=== PATIENT | male | born 1985 | race Caucasian/White ===

== ENCOUNTER 2017-05-04 10:06 | Emergency (ER) | payer OTHER, SELFPAY ==
[2017-05-04 10:07] VITALS: BP 159/106; PULSE 89; RESP 18; TEMP 36.6; O2SAT 100; BMI 27.4
--- NOTE | 2017-05-04 10:19 | CT_ITS ---
STUDY: CT ABDOMEN AND PELVIS WITHOUT CONTRAST REASON FOR EXAM: Male, 31 years old. LEFT FLANK PAIN. RADIATION DOSAGE (If Supplied By Facility): CTDIvol = ( 6.62 ) mGy, DLP = ( 309.48 ) mGycm TECHNIQUE: Transaxial images were obtained from the dome of the diaphragm to the symphysis pubis without oral contrast, and without intravenous contrast. Sagittal and coronal images were reconstructed. Individualized dose optimization techniques were used for this CT. COMPARISON: None. FINDINGS: The visualized lung bases are unremarkable. The visualized portions of the heart are within normal limits. Normal liver. Normal gallbladder and extrahepatic biliary system. Normal spleen. Normal pancreas. Normal bilateral adrenal glands. Normal right kidney. 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 Normal visualized stomach. Normal small intestine. Normal colon. The appendix is visualized and appears normal. Normal abdominal aorta. Normal inferior vena cava. Normal retroperitoneum. Normal urinary bladder. Normal abdominal wall. There are diffuse degenerative changes of the visualized lumbar spine. CT/Abdomen/Pelvis without Cont IMPRESSION: No hydronephrosis or urolithiasis. Duplicated left kidney system. Electronically Signed: Aleida Gardiner MD at 10:57 EDT Tel , Service support ,
[2017-05-04 10:40] LABS: Absolute Lymphocyte Count 2.06 X10^3/ul (0.83-4.51); Basophil# 0.01 X10^3/uL; Basophil% 0.1 % (0-1); Eosinophil# 0.07 X10^3/uL; Hematocrit 43.9 % (40-54); Hemoglobin 14.9 g/dl (13.0-16.5); Lymphocyte # 2.06 X10^3/ul (4.0); Lymphocyte % 30.8 % (19-41); Mean Corp Hgb Conc 33.9 g/gl (32-36); Mean Corpuscular Hgb 29.5 pg (27.0-32.0); Mean Corpuscular Volume 86.9 fL (80-94); Mean Platelet Vol. 9.1 fl (6.2-12.0); Monocyte% 7.5 % (0-10); Neutrophil # 4.03 X10^3/uL (2.7-7.7); Neutrophil % 60.5 % (47-70); POSITIVE COUNT NO; POSITIVE DIFFERENTIAL NO; POSITIVE MORPHOLOGY NO; Platelet Count 187 K/mm3 (150-450); RBC Distribution Width SD 41.2 fl (35.1-43.9); Red Blood Count 5.05 M/mm3 (4.6-6.2); White Blood Count 6.7 K/mm3 (4.4-11.0)
[2017-05-04 10:49] LABS: D-Dimer Quantitative (DVT/PE) 0.32 FEU/ug/m (0.27-0.49)
[2017-05-04 10:52] LABS: Anion Gap 8 (5-15); BUN 10 mg/dL (7-18); BUN/Creat Ratio 11.5 RATIO (10-20); Calcium,Total 8.7 mg/dL (8.5-10.1); Chloride 103 mmol/L (98-107); Creatinine, Serum 0.87 mg/dL (0.70-1.30); EST Glomerular Filtration Rate 109 mL/min (>60); Est Glom Filt Rate - Afr Amer 132 mL/min (>60); Estimated Creatinine Clearance 112.04 ml/min; Glucose 84 mg/dL (74-106); Potassium 3.9 mmol/L (3.5-5.1); Sodium Level 137 mmol/L (136-145)
[2017-05-04] MEDS: 0.9% Normal Saline 1,000 ML 150 ML IV (10:54)
--- NOTE | 2017-05-04 11:01 | ED.VISSUMM ---
- ER Visit Summary Date of Service: 05/04/17 Chief Complaint: [Flank pain] History of Present Illness: The patient is a 31 M [presents the emergency department with left-sided pain that started 3 days ago. Patient states he woke up initially just felt sore on the left side. Patient states pains progressively worsened. Pain is positional and worse with deep breath, movement,, cough. Patient has not had any recent surgery or travel. Patient has not had pain like this before. Patient denies any trauma. Patient was being seen by urgent care today and had a urine dip that showed moderate amount of blood and therefore was sent to the ER for evaluation for possible kidney stone. Patient denies any fever or urinary symptoms.] Patient currently states the pain is a 4 out of 10. Physical Examination: [HEENT-PERRLA, EOMI. Cranial nerves II through XII grossly intact. TMs clear. Mucous membranes moist. No adenopathy. Cardiovascular-regular rate and rhythm without murmur or ectopy Lungs-clear to auscultation, chest wall stable without crepitus or subcu emphysema. Patient has some tenderness over the left lower ribs in the mid axillary line and posteriorly. Patient has CVA tenderness on the left. Abdomen-normoactive bowel sounds, soft, nontender, no rebound or rigidity, no peritoneal signs. Extremities-intact ?4, normal range of motion, normal pulses, atraumatic] Test Results: [CBC with differential obtained was normal. Chemistries were normal. D-dimer was normal 0.32. CT flank showed a duplicated left kidney without evidence for urolithiasis or hydronephrosis. Nothing else significant on CT. Urinalysis normal.] Emergency Department Course and Treatment: [Patient did not want anything for pain in the emergency department] Treatment Plan: [Patient advised to take ibuprofen or Tylenol for discomfort. This point the etiology of his pain is uncertain although I suspect likely a musculoskeletal etiology.] Disposition: [Discharged to home in stable condition. Patient advised to return if worsening pain or increasing shortness of breath or condition should worsen in any way. Patient will be referred to primary care physician general production laborer for no doc.] Impression: [Left flank pain-etiology uncertain] This note was generated with [employer] software. It may contain incorrect words, spelling, and punctuation that were not noted in review of the chart prior to signing ED Disposition - Plan for ED Patient: Chief Complaint: Flank Pain Referrals: Care Physician,No Primary [Primary Care Provider] -
[2017-05-04 11:21] LABS: Bacteria 0 SEEN /hpf (None Seen); Mucous, Urine 0 SEEN /hpf (<or=2+); Red Blood Cells-Urine 0 SEEN /hpf (0-5); Squamous Epithelial Cells - UA 0 SEEN /hpf (0-5)
[2017-05-04 11:22] LABS: Color, Urine Yellow (Yellow); Glucose, Dipstick Normal (Normal); Ketone-Dipstick Negative (Negative); Leukocyte Esterase-Dipstick Negative /ul (Negative); Nitrite-Dipstick Negative (Negative); Occult Blood-Urine 10 /ul (Negative); Protein-Dipstick Negative (Negative); Specific Gravity, Urine 1.005 (1.002-1.030); Urine Bilirubin Dipstick Negative (Negative); Urine Clarity Clear (Clear); Urine Urobilinogen Normal (Normal)
[2017-05-04 11:28] LABS: White Blood Cells 0-5 SEEN /hpf (0-5)
--- NOTE | 2017-05-04 11:34 | ED.DEP ---
ED Disposition - Plan for ED Patient: Chief Complaint: Flank Pain Instructions: ED Flank Pain Uncertain Cause Referrals: Care Physician,No Primary [Primary Care Provider] - Jose Cobb MD [STAFF PHYSICIAN] - 5-7 Days
[2017-05-04 11:53] VITALS: BP 124/90; PULSE 80; RESP 14; O2SAT 99
== END 2017-05-04 11:54 | disposition home or self-care (01) ==
PROVIDERS: Emergency Provider Emergency Medicine
DX: R10.9 Unspecified abdominal pain (principal); Z72.0 Tobacco use
CPT/HCPCS: 74176; 80048; 81001; 85025; 85379; 96360; 99283; J7030; A4216

== ENCOUNTER → 2018-02-17 11:23 | Outpatient (CLI) | payer OTHER, SELFPAY ==
--- NOTE | 2018-02-17 09:00 | VAS_PTH ---
PATIENT: KADI TURNER LOC: [facility] U#:[id number] AGE/SX: 39/M ROOM: RE02/17/[address]: Dr. Flash Andres MD : 1985 BED: DIS: SPEC #: [id number] RECD: 02/17/18 11:18 STATUS: CHANTE JAVIER #: [id number] SAMARIA: 02/17/18 09:[address]: Flash Andres DEPT: SURGICAL PATHOLOGY RECD BY: Jeff Turner ENTERED: 02/17/18 11:36 SP TYPE: VAS OTHR DR: Kiara Primary Care Phys Tissues: A - Vas deferens, NOS B - Vas deferens, NOS Procedures: Surgery Specimen Level II HEADER OPERATION: Bilateral partial vasectomy PRE-OP DIAGNOSIS: Sterilization TISSUE SUBMITTED: A - Right vas deferens, B - Left vas deferens MICROSCOPIC DIAGNOSIS A. Right vas deferens, segmental vasectomy: Complete segment of vas deferens with no pathologic change. B. Left vas deferens, segmental vasectomy: Complete segment of vas deferens with no pathologic change. AM:kandy 02/18/18 MICROSCOPIC DESCRIPTION Slides are reviewed. GROSS DESCRIPTION A - Received is one container designated right vas deferens. The specimen consists of a tubular piece of pike-pink soft tissue measuring 1.2 cm in length and 0.2 cm in maximum diameter. The entire specimen is submitted in one cassette. It will be sectioned at the time of embedding. B - Received is one container designated left vas deferens. The specimen consists of a tubular piece of pike-pink soft tissue measuring 1.7 cm in length and 0.2 cm in maximum diameter. The entire specimen is submitted in one cassette. It will be sectioned at the time of embedding. / SJ:kandy 02/17/18 TC:4 [facility]: [id number] x2
[2018-02-17 09:08] VITALS: BMI 26.6
== END ==
PROVIDERS: Referring Provider Surgery; Visit Provider Surgery
DX: Z30.2 Encounter for sterilization (principal)
CPT/HCPCS: 88302

== ENCOUNTER → 2018-04-14 11:13 | Outpatient (CLI) | payer OTHER, SELFPAY ==
[2018-03-03 09:24] VITALS: BMI 26.6
[2018-04-14 12:47] LABS: Semen Analysis Post Vas ABSENT
== END ==
PROVIDERS: Referring Provider Surgery; Visit Provider Surgery
DX: Z30.2 Encounter for sterilization (principal)
CPT/HCPCS: 89321

== ENCOUNTER → 2018-04-28 12:53 | Outpatient (CLI) | payer OTHER, SELFPAY ==
[2018-03-03 09:24] VITALS: BMI 26.6
[2018-05-02 09:36] LABS: Semen Analysis Post Vas ABSENT
== END ==
PROVIDERS: Referring Provider Surgery; Visit Provider Surgery
DX: Z30.2 Encounter for sterilization (principal)
CPT/HCPCS: 89321

== ENCOUNTER 2024-02-23 09:18 | Emergency (ER) | payer OTHER, SELFPAY ==
[2024-02-23 09:19] VITALS: BP 132/104; PULSE 123; RESP 20; TEMP 36.4; O2SAT 99
--- NOTE | 2024-02-23 09:32 | ED.VIS.LOWEX ---
HPI History of Present Illness Chief Complaint: Lower Extremity Injury Narrative Narrative: 38-year-old male who denies significant past medical history presents with injury to his right ankle that he sustained yesterday evening at around 10 to 11 PM, almost 12 hours ago. He states he was outside and slipped on the ice. He thinks he may have suffered an inversion injury and now has pain on his right lateral ankle. Initially he walked on it, but has been crawling around the house. He denies hitting his head or loss of consciousness, no neck pain, no other injury. Took Tylenol at 3 AM this morning, approximately 6 hours ago. He complains of increased pain and swelling of his right ankle that is worse with walking and weightbearing. [facility] Medical History (Updated 02/23/24 @ 10:09 by Gregory Nguyen MD) Encounter for sterilization No significant medical problems (~1986) Home Medications ?Medication ?Instructions ?Recorded ?Last Taken ?Type NK 02/17/18 Unknown History Allergy/AdvReac Type Severity Reaction Status Date / Time No Known Allergies Allergy Verified 03/03/18 09:12 Family History Mother CVA (cerebral vascular accident) Surgical History History of vasectomy (~02/2018) History of gastric surgery Social History Smoking Status: Never smoker ROS ROS ED ROS Narrative Focused review of systems positive for right ankle pain and swelling laterally. No foot pain. No knee pain. Denies other injury. No nausea or vomiting. EXAM Physical Exam Narrative Exam Narrative: GCS 15. ABCs are intact. Cardiovascular examination reveals mild tachycardia. Lungs clear to auscultation bilaterally. Abdomen soft nontender with normal active bowel sounds. Inspection of the right ankle does reveal mild tenderness to palpation of the right lateral malleolus with swelling of the talofibular ligament area. No palpable Achilles tendon deficit. Able to dorsiflex and plantarflex right foot. Palpable dorsalis pedis pulse. EHL intact, right. No proximal fibular head tenderness. No crepitance. No tenderness proximal fifth metatarsal head. Const Vital Signs: 02/23/24 09:19 Temperature 97.5 F L Temperature Source Temporal Pulse Rate 123 H Respiratory Rate 20 H Blood Pressure 132/104 H Blood Pressure Mean 113 Pulse Ox 99 Oxygen Delivery Method Room Air MDM MDM MDM Narrative Medical decision making narrative: Differential diagnosis includes but not limited to right ankle sprain versus fracture. I have very low suspicion for proximal fifth metatarsal head fracture as he has no tenderness there. X-rays were obtained of the right ankle and 3 views and interpreted by myself independently. On my independent interpretation, I see no evidence of an acute fracture. There is lateral soft tissue swelling noted. I reviewed the radiology report which confirms my independent interpretation. I discussed with the patient treatment with an Aircast and crutches, but he declined. He is acceptable to an Macho wrap. Additionally, I offered him something stronger for pain as a one-time dose here in the emergency department but he states that Tylenol was working for him. He was told to continue [id number] analgesics such as Tylenol or ibuprofen and continue ice and elevation at home. He was referred to a primary care provider. Return instructions to the emergency department were reviewed. Disposition is discharged home in stable condition. History & Record Review Discussion w/independent historian: Patient Additional record(s) reviewed:: Prior ED visit (From 2018, noncontributory to current chief complaint.) Radiography X-Ray: Read by ED Physician, Read by Radiologist, Normal and No Fracture Diagnostic Testing: Clinical Impression(s) from Imaging Studies Ankle X-Ray 02/23/24 09:40 IMPRESSION: Lateral soft tissue swelling. No fracture is seen. Electronically Signed: Mehdi Soler MD at 10:12 EST , Discharge Plan Triage Chief Complaint: Lower Extremity Injury ED Provider: Gregory Nguyen Dx/Rx/DC Orders Clinical Impression: Right ankle sprain, Fall from slipping on ice Instructions: ED Sprain Ankle W X Ray Prescriptions: No Action NK Primary Care Provider: Care Physician,No Primary Referrals: Manav Arriaga MD [Med Staff - Active Staff] - 1 Week if not improving Care Physician,No Primary [Primary Care Provider] - Activity Restrictions/Additional Instructions: Continue ice and elevation of your right ankle at home. Use Macho wrap. Follow-up with a primary care provider in a week if not improving. Return with increased pain, new or worsening symptoms. Print Language: Greenlandic Disposition Disposition: Home, Self Care
--- NOTE | 2024-02-23 09:40 | RAD_ITS ---
STUDY: X-RAY - RIGHT ANKLE REASON FOR EXAM: Male, 38 years old. Ankle pain following injury. TECHNIQUE: 3 view(s) of the ankle. COMPARISON: None. FINDINGS: Normal visualized distal tibia and fibula. Normal medial and lateral malleoli. Normal tibiotalar articulation and ankle mortise. Normal visualized talus and calcaneus. The visualized subtalar, talonavicular, calcaneocuboid and tarsal articulations are normal. Soft tissue swelling overlying lateral malleolus. RAD/Ankle min 3 Views IMPRESSION: Lateral soft tissue swelling. No fracture is seen. Electronically Signed: Mehdi Soler MD at 10:12 EST ,
[2024-02-23 10:29] VITALS: BP 139/95; PULSE 86; RESP 14; TEMP 36.6; O2SAT 98
== END 2024-02-23 10:31 | disposition home or self-care (01) ==
PROVIDERS: Emergency Provider Emergency Medicine; Visit Provider Emergency Medicine
DX: S93.401A Sprain of unspecified ligament of right ankle, initial encounter (principal); W00.9XXA Unspecified fall due to ice and snow, initial encounter
CPT/HCPCS: 73610; 99282